=== PATIENT | female | born 1980 | race Caucasian/White ===

== ENCOUNTER 2018-04-26 18:33 | Observation (INO) | payer SELFPAY ==
[~2018-04-26] VITALS: Ht 156 cm; Wt 77.1 kg
[2018-04-26 19:06] VITALS: BP 126/73
[2018-04-26] MEDS ORDERED: METHY250 PO (19:06)
[2018-04-26 21:13] VITALS: BP 126/73
== END 2018-04-26 21:35 | disposition home or self-care (01) ==
LOC: 4S 18:33
PROVIDERS: ADMIT Obstetrics & Gynecology; ATTEND Obstetrics & Gynecology
DX: O36.8130 Decreased fetal movements, third trimester, not applicable or unspecified (principal); O09.523 Supervision of elderly multigravida, third trimester; Z3A.37 37 weeks gestation of pregnancy
CPT/HCPCS: 76805; 81002; G0378

== ENCOUNTER 2018-05-01 12:30 | Inpatient (IN) | payer OTHER ==
[~2018-05-01] VITALS: Ht 154.9 cm; Wt 77.1 kg
[~2018-05-01 12:30] MED LIST: METHY250 PO
[2018-05-01] MEDS ORDERED: FOLI0.4T4 PO (13:23)
[2018-05-01 14:30] LABS: BASOPHILS % (AUTO) 0.5 % (0.0-2.0); EOSINOPHILS % (AUTO) 0.4 % (1.0-6.0); HEMATOCRIT 37.4 % (36-46); HEMOGLOBIN 13.1 g/dL (12.0-16.0); LYMPHOCYTES # (AUTO) 1.4 K/uL (1.0-4.8); LYMPHOCYTES % (AUTO) 16.7 % (22.0-44.0); MEAN CORPUSCULAR HEMOGLOBIN 31.3 pg (26.0-34.0); MEAN CORPUSCULAR HGB CONC 35.1 G/dL (31.0-37.0); MEAN CORPUSCULAR VOLUME 89 fL (80-100); MONOCYTES # (AUTO) 0.5 K/uL (0.1-1.0); MONOCYTES % (AUTO) 5.6 % (2.0-9.0); NEUTROPHILS # (AUTO) 6.5 K/uL (1.8-7.7); NEUTROPHILS % (AUTO) 76.8 % (40.0-70.0); PLATELET COUNT (AUTO) 202 K/uL (150-450); RED BLOOD CELL COUNT(AUTO) 4.19 MIL/uL (4.00-5.20); RED CELL DISTRIBUTION WIDTH 14.4 % (11.5-14.5)
[2018-05-01 14:40] LABS: ANION GAP 10 mmol/L (8-16); CALCIUM, TOTAL 8.6 mg/dL (8.8-10.5); CARBON DIOXIDE 23 mmol/L (22-29); CHLORIDE 104 mmol/L (98-107); CREATININE 0.74 mg/dL (0.60-1.30); GLOMERULAR FILTR. RATE CALC > 60 mL/min (>60); GLUCOSE,RANDOM 115 mg/dL (70-110); POTASSIUM 4.1 mmol/L (3.5-5.1); SODIUM SERUM 137 mmol/L (136-145); UREA NITROGEN, BLOOD 9 mg/dL (7-18)
[2018-05-01 14:47] LABS: ALANINE AMINOTRANSFERASE 19 U/L (12-78); ALBUMIN 2.3 g/dL (3.4-5.0); ALKALINE PHOSPHATASE 135 U/L (46-116); ASPARTATE AMINOTRANSFERASE 22 U/L (15-37); BILIRUBIN,TOTAL 0.3 mg/dL (0.1-1.0); TOTAL PROTEIN, SERUM 6.3 g/dL (6.4-8.2); URIC ACID 5.1 mg/dL (2.6-7.2)
[2018-05-01] MEDS ORDERED: RINGERS SOLUTION,LACTATED 1,000 ML IV ONE (15:27)
[2018-05-01] MEDS ORDERED: OXYTOCIN 30 UNITS/LACT RINGERS 500 ML IV ONE (15:27)
[2018-05-01] MEDS ORDERED: LIDOCAINE/PF 1% 30 ML VIAL INJ PRN (15:30)
[2018-05-01 15:42] VITALS: BP 116/64
[2018-05-01] MEDS ORDERED: DINOPROSTONE 10 MG VAGINAL SUPPOSITORY VG ONE (16:30)
[2018-05-01] MEDS: RINGERS SOLUTION,LACTATED 1,000 ML IV SCH ×2 (16:32→22:06)
[2018-05-01 19:29] VITALS: BP 119/56
[2018-05-02] MEDS: RINGERS SOLUTION,LACTATED 1,000 ML IV SCH ×4 (04:31→18:05)
[2018-05-02] MEDS ORDERED: MISOPROSTOL 25 MCG TABLET PO ONE (04:40)
[2018-05-02] MEDS ORDERED: MISOPROSTOL 25 MCG TABLET PO PRN (08:45)
[2018-05-02] MEDS ORDERED: METHYLERGONOVINE MALEATE 0.2 MG/ML VIAL IM PRN (12:00)
[2018-05-02] MEDS ORDERED: FentaNYL CITRATE-PF 100 MCG/2 ML VIAL IVP PRN ×2 (12:00→16:30)
[2018-05-02] MEDS ORDERED: ROPIVACAINE HCL/PF 0.2% 100 ML ED ONE (12:12)
[2018-05-02] MEDS ORDERED: ONDANSETRON HCL 4 MG/2 ML VIAL IVP PRN (13:00)
[2018-05-02] MEDS ORDERED: DiphenhydrAMINE HCL 50 MG/ML VIAL IVP PRN (13:00)
[2018-05-02] MEDS ORDERED: ROPIVACAINE HCL/PF 0.2% 100 ML ED PRN (13:00)
[2018-05-02] MEDS ORDERED: NALBUPHINE HCL 10 MG/ML VIAL IVP PRN (13:00)
[2018-05-02] MEDS ORDERED: LIDOCAINE 2%/EPI 1:200,000/PF 20 ML VIAL ONE (13:39)
[2018-05-02] MEDS ORDERED: RINGERS SOLUTION,LACTATED 1,000 ML IV SCH (15:21)
[2018-05-02] MEDS ORDERED: RINGERS SOLUTION,LACTATED 1,000 ML IV PRN (15:21)
[2018-05-02] MEDS ORDERED: CITRIC ACID/SODIUM CITRATE 30 ML SOLUTION UDCUP ONE (15:22)
[2018-05-02] MEDS ORDERED: METOCLOPRAMIDE HCL 5 MG/ML 2 ML VIAL ONE (15:23)
[2018-05-02] MEDS ORDERED: METOCLOPRAMIDE HCL 5 MG/ML 2 ML VIAL IVP PRN (15:30)
[2018-05-02] MEDS ORDERED: CITRIC ACID/SODIUM CITRATE 30 ML SOLUTION UDCUP PO PRN (15:30)
[2018-05-02] MEDS ORDERED: HYDROmorphone 2 MG/ML SYRINGE IVP PRN (16:30)
[2018-05-02] MEDS ORDERED: MEPERIDINE-PF 25 MG/ML VIAL IVP PRN (16:30)
[2018-05-02] MEDS ORDERED: OXYTOCIN 30 UNITS/LACT RINGERS 500 ML IV ONE (17:07)
[2018-05-02] MEDS ORDERED: OxyCODONE HCL/ACETAMINOPHEN 5-325 MG TABLET PO PRN ×2 (17:15)
[2018-05-02] MEDS ORDERED: LANOLIN 7 GM OINTMENT TP PRN (17:15)
[2018-05-02] MEDS ORDERED: TERBUTALINE SULFATE 1 MG/ML VIAL SQ ONE (18:30)
[2018-05-02] MEDS ORDERED: OXYGEN THERAPY IH SCH (20:00)
[2018-05-03] MEDS ORDERED: DiphenhydrAMINE HCL 50 MG/ML VIAL IVP PRN
[2018-05-03] MEDS ORDERED: ONDANSETRON HCL 4 MG/2 ML VIAL IVP PRN
[2018-05-03] MEDS ORDERED: NALBUPHINE HCL 10 MG/ML VIAL IVP PRN ×2
[2018-05-03] MEDS ORDERED: KETOROLAC TROMETHAMINE 15 MG/ML VIAL IVP PRN
[2018-05-03] MEDS: ACETAMINOPHEN 1000 MG/ISO-OSM 100 ML IV SCH ×3 (00:45→16:02)
[2018-05-03] MEDS: RINGERS SOLUTION,LACTATED 1,000 ML IV SCH (01:47)
[2018-05-03] MEDS ORDERED: OXYTOCIN 10 UNITS/ML VIAL IM ONE (03:35)
[2018-05-03] MEDS ORDERED: EPHEDrine SULFATE 50 MG/ML VIAL IM ONE (03:35)
[2018-05-03] MEDS ORDERED: ONDANSETRON HCL 4 MG/2 ML VIAL IVP ONE (03:35)
[2018-05-03 05:05] LABS: BASOPHILS % (AUTO) 0.6 % (0.0-2.0); EOSINOPHILS % (AUTO) 0.1 % (1.0-6.0); HEMATOCRIT 34.2 % (36-46); HEMOGLOBIN 11.9 g/dL (12.0-16.0); LYMPHOCYTES # (AUTO) 1.3 K/uL (1.0-4.8); MEAN CORPUSCULAR HEMOGLOBIN 30.6 pg (26.0-34.0); MEAN CORPUSCULAR HGB CONC 34.8 G/dL (31.0-37.0); MEAN CORPUSCULAR VOLUME 88 fL (80-100); MONOCYTES # (AUTO) 0.7 K/uL (0.1-1.0); MONOCYTES % (AUTO) 5.4 % (2.0-9.0); NEUTROPHILS # (AUTO) 10.7 K/uL (1.8-7.7); NEUTROPHILS % (AUTO) 83.9 % (40.0-70.0); PLATELET COUNT (AUTO)-OB 162 K/uL (150-450); RED BLOOD CELL COUNT(AUTO) 3.89 MIL/uL (4.00-5.20); RED CELL DISTRIBUTION WIDTH 14.3 % (11.5-14.5)
[2018-05-03] MEDS: DiphenhydrAMINE HCL 50 MG/ML VIAL IVP PRN ×2 (06:27→11:48)
[2018-05-03] MEDS: MAGNESIUM HYDROXIDE SUSPENSION 30 ML UDCUP PO SCH ×2 (08:49→21:26)
[2018-05-03] MEDS: IBUPROFEN 800 MG TABLET PO PRN (18:10)
[2018-05-04] MEDS: IBUPROFEN 800 MG TABLET PO PRN (00:32)
[2018-05-04] MEDS ORDERED: MORPHINE SULFATE/PF 0.5 MG/ML 10 ML AMP IVP ONE (04:14)
[2018-05-04] MEDS ORDERED: HYDR-4455 PO (08:15)
[2018-05-04] MEDS ORDERED: ACET-66 PO (08:18)
[2018-05-04] MEDS ORDERED: IBUP-2070 PO (08:19)
[2018-05-04] MEDS ORDERED: DSS100 PO (08:19)
== END 2018-05-04 15:50 | disposition home or self-care (01) | DRG 787 ==
LOC: OBSVTOIN 12:30 → 4S 12:30
PROVIDERS: ADMIT Obstetrics & Gynecology; ATTEND Obstetrics & Gynecology
PROC: 3E02340 Introduction of Influenza Vaccine into Muscle, Percutaneous Approach (ICD-10-PCS; 2018-05-01)
PROC: 10D00Z1 Extraction of Products of Conception, Low, Open Approach (ICD-10-PCS; principal; 2018-05-02)
DX: O69.81X0 Labor and delivery complicated by cord around neck, without compression, not applicable or unspecified (principal); O41.03X0 Oligohydramnios, third trimester, not applicable or unspecified; Z3A.38 38 weeks gestation of pregnancy; Z37.0 Single live birth; Z23 Encounter for immunization
CPT/HCPCS: 76811; 84550; 86850; 86900; 86901; 87081; 90686; J0131; J1200; J2274; J2300; J2405; J2590; J2765; J2795; J3490; J7120